=== PATIENT | male | born 2000 | race Caucasian/White ===

== ENCOUNTER 2022-03-23 16:15 | Emergency (ER) | payer BC, SELFPAY ==
[2022-03-23 16:27] VITALS: BP 120/61; PULSE 52; RESP 16; TEMP 36.3; O2SAT 99
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
== END 2022-03-23 18:00 | disposition home or self-care (01) ==
PROVIDERS: Emergency Provider Physician Assistant
DX: S93.402A Sprain of unspecified ligament of left ankle, initial encounter (principal); W22.8XXA Striking against or struck by other objects, initial encounter; X50.1XXA Overexertion from prolonged static or awkward postures, initial encounter; Y93.55 Activity, bike riding
CPT/HCPCS: 99283; 73610; 99282